=== PATIENT | female | born 1965 | race Caucasian/White ===

== ENCOUNTER → 2016-09-14 | Outpatient (CLI) | payer BC ==
[2014-05-23 06:58] VITALS: BP 151/71
--- NOTE | 2016-09-14 10:52 | CARD ---
APPROVED REPORT INDICATION Chest Pain PROCEDURE The patient underwent an Exercise Stress Test using the Vasquez Protocol. Blood pressure, heart rate, a nd EKG were monitored. An Echocardiogram was performed by home theatre technician in four stages in quad fashion. At peak stress four se lected images were obtained and placed side by side with resting images for comparison. STRESS ECHO FINDINGS The resting Echocardiogram showed normal left ventricular contractility with an estimated Ejection Fr action of about 60 %. The resting Echocardiogram showed wall motion abnormality in the septum due to conduction abnormality .. Normal augmentation of myocardial wall segments using a 16 segment model. 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 NOTED ON INITIAL CARDIAC READING PT IS IN CONSISTENT BIGEMINY. Consent: The procedure was explained to the patient in lay terms. Informed consent was witnessed. Rick eout was entered into [employer]. History and Stress Test performed by STEPHANIE MCCRACKEN Stress Symptoms NONE STATED. PT ABLE TO PROGRESS TO FAST WALK TO A JOG. POST EXERCISE Reason for Termination: Reached target heart rate Target HR: 145 Max HR: 164 bpm 96% of Maximum Predicted HR: 170 bpm Exercise duration: 10:15 min:sec, 3 Stage Exercise capacity: 12.3METs Max Blood Pressure: 146/82mmHg Blood Pressure response to exercise: Normal blood pressure response during stress. Heart Rate response to exercise: WNL Chest Pain: No. Arrhythmia: Yes. BIGEMINY NOT PRESENT AT PEAK OF EXERCISE, SINUS TACHYCARDIA AT PEAK EXERCISE, ONCE P T RETURN TO BASELINE HR QUADRIGEMINY TO BIGEMINY RETURNED ST Change: No. INTERPRETATION Stress EKG Conclusion: Baseline EKG showed sinus rhythm with ventricular bigeminy. No ischemic valiente es at peak stress. No significant arrhythmias. Preliminary Notification Critical Value: No <Conclusion> Treadmill exercise stress echocardiogram did not show any evidence of ischemia or infarct. Normal left ventricle systolic function with ejection fraction estimated at 60%. Patient had good activity tolerance. Low risk for cardiac events.
--- NOTE | 2016-09-15 11:41 | EKG ---
[facility] [address] [place] [address] Test Date: 2016-09-14 Test Time: 09:36:41 Pat Name: JYOTHI KASSIEELVIN Department: Room: Gender: F General Foreman: Mathieu Mckay : 1965 Requested By: LANDON CHEN Order Number: [id number] Reading MD: Interpretive Statements
== END | disposition home or self-care (01) ==
LOC: ECHO 08:51
PROVIDERS: ATTEND Internal Medicine Cardiovascular Disease
DX: R07.9 Chest pain, unspecified (principal); I49.3 Ventricular premature depolarization
CPT/HCPCS: 93017; 93225; 93226; 93350

== ENCOUNTER → 2016-12-13 | Outpatient (CLI) | payer BC ==
[2014-05-23 06:58] VITALS: BP 151/71
--- NOTE | 2016-12-15 09:48 | EKG ---
[facility] [address] [place] [address] Test Date: 2016-12-13 Test Time: 07:44:40 Pat Name: YJOTHI KASSIEELVIN Department: Room: Gender: F Pigment Pumper: Mathieu Mckay : 1965 Requested By: LANDON CHEN Order Number: [id number] Reading MD: Interpretive Statements
== END | disposition home or self-care (01) ==
LOC: EKG 08:22
PROVIDERS: ATTEND Internal Medicine Cardiovascular Disease
DX: I49.3 Ventricular premature depolarization (principal)
CPT/HCPCS: 93225; 93226

== ENCOUNTER → 2018-05-25 | Outpatient (CLI) | payer BC ==
[2014-05-23 06:58] VITALS: BP 151/71
--- NOTE | 2018-05-25 15:04 | CARD ---
MR#: [id number] Date of Study: 05/25/2018 Ordering Physician: PERRY COATS, Referring Physician: PERRY COATS, Tech: Lucrecia Tapia APPROVED REPORT EXAM: Two-dimensional and M-mode echocardiogram with Doppler and color Doppler. Other Information Quality : AverageHR: 84bpm Technically limited study due to body habitus. INDICATION Premature Ventricular Contractions RISK FACTORS Smoking 2D DIMENSIONS RVDd2.5 (2.9-3.5cm)Left Atrium(2D)2.9 (1.6-4.0cm) IVSd0.8 (0.7-1.1cm)Aortic Root(2D)2.9 (2.0-3.7cm) LVDd4.5 (3.9-5.9cm)LVOT Diameter2.2 (1.8-2.4cm) PWd0.9 (0.7-1.1cm)LVDs2.9 (2.5-4.0cm) FS (%) 36.4 %SV62.4 ml LVEF(%)66.2 (>50%) Aortic Valve AoV Peak Reyes.115.7cm/sAoV VTI23.5cm AO Peak GR.5.4mmHgLVOT Peak Reyes.101.7cm/s LVOT VTI 20.82cmAO Mean GR.3mmHg HIGINIO (VMAX)2.41cu5JCF (VTI)3.35cm2 Mitral Valve MV E Gklqrzib179.8cm/sMV DECEL [id number] MV A Qismgjbk10.9cm/sMV JNF12nn E/A Ratio1.8MVA (PHT)4.82cm2 TDI E/Lateral E'9.8E/Medial E'10.1 Pulmonary Valve PV Peak Sffiatpu74.7cm/sPV Peak Grad.3mmHg Tricuspid Valve TR P. Byqcqvkf907gc/sRAP [id number] TR Peak Gr.89rjVeBUWP90eyHz Pulmonary Vein S1 Klgxomwv75.2cm/sD2 Bsvvnyrk90.0cm/s PVa [id number] LEFT VENTRICLE The left ventricle is normal size. There is normal left ventricular wall thickness. Apical LV appears hypoechoic on images, probable apically displaced papillary muscle. The left ventricular systolic fu nction is normal and the ejection fraction is within normal range. The Ejection Fraction is 50-55%. T here is normal LV segmental wall motion. Transmitral Doppler flow pattern is Grade II-pseudonormal fi lling dynamics. RIGHT VENTRICLE The right ventricle is normal size. There is normal right ventricular wall thickness. The right ventr icular systolic function is normal. ATRIA The left atrium size is normal. The right atrium is borderline dilated. The interatrial septum is int act with no evidence for an atrial septal defect or patent foramen ovale as noted on 2-D or Doppler i maging. AORTIC VALVE The aortic valve is normal in structure and function. Doppler and Color Flow revealed trace aortic re gurgitation. There is no significant aortic valvular stenosis. MITRAL VALVE The mitral valve is normal in structure and function. There is no mitral valve stenosis. Doppler and Color-flow revealed trace mitral regurgitation. TRICUSPID VALVE The tricuspid valve is not well visualized. Doppler and Color Flow revealed trace tricuspid regurgita tion with an estimated PAP of 28 mmHg. There is no tricuspid valve prolapse or vegetation. There is n o tricuspid valve stenosis. PULMONIC VALVE The pulmonic valve is not well visualized. Doppler and Color Flow revealed trace pulmonic valvular re gurgitation. There is no pulmonic valvular stenosis. GREAT VESSELS The aortic root is normal in size. Normal pulmonary venous flow (Doppler). The IVC is normal in size and collapses >50% with inspiration. PERICARDIAL EFFUSION There is no evidence of significant pericardial effusion. Critical Notification Critical Value: No <Conclusion> The left ventricular systolic function is normal and the ejection fraction is within normal range. Th e Ejection Fraction is 50-55%. There is normal LV segmental wall motion. There is normal left ventricular wall thickness. Apical LV appears hypoechoic on images, probable api yadiel displaced papillary muscle. Signed by : Perry Coats, Electronically Approved : 05/25/2018 15:03:36
== END | disposition home or self-care (01) ==
LOC: ECHO 13:43
PROVIDERS: ATTEND Internal Medicine Cardiovascular Disease
DX: I49.3 Ventricular premature depolarization (principal); F17.200 Nicotine dependence, unspecified, uncomplicated
CPT/HCPCS: 93306